=== PATIENT | female | born 1960 | race Caucasian/White ===

== ENCOUNTER → 2020-02-23 | Outpatient (CLI) | payer OTHER | LOC: M.ULTRA 09:00 | DX: N83.292 Other ovarian cyst, left side (principal); N95.0 Postmenopausal bleeding ==

== ENCOUNTER → 2020-12-15 | Outpatient (CLI) | payer OTHER | LOC: M.RAD 14:44 | PROVIDERS: ATTEND Internal Medicine | DX: M79.671 Pain in right foot (principal) ==